=== PATIENT | female | born 1980 | race American Indian/Alaskan Native ===

== ENCOUNTER 2020-09-16 21:11 | Emergency (ER) | payer SELFPAY ==
[2020-09-16 22:58] VITALS: BP 127/77
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
[2020-09-17 01:24] LABS: Basophils % (Auto) 0.9 % (0.0-1.8); Eosinophils # (Auto) 0.1 K/mm3 (0.0-0.4); Eosinophils % (Auto) 1.5 % (0.0-4.3); Hematocrit 34.8 % (30.3-42.9); Hemoglobin 11.6 gm/dl (10.1-14.3); Lymphocytes # (Auto) 1.9 K/mm3 (1.2-5.4); Lymphocytes % (Auto) 52.8 % (13.4-35.0); Mean Corpuscular HGB Conc 33 % (30-34); Mean Corpuscular Volume 91 fl (79-97); Monocytes # (Auto) 0.3 K/mm3 (0.0-0.8); Monocytes % (Auto) 8.1 % (0.0-7.3); Platelet Count 380 K/mm3 (140-440); Red Blood Count 3.83 M/mm3 (3.65-5.03); Red Cell Distribution Width 15.8 % (13.2-15.2)
[2020-09-17 01:43] LABS: Alanine Aminotransferase 90 units/L (7-56); Albumin 4.8 g/dL (3.9-5); Blood Urea Nitrogen 3 mg/dL (7-17); Calcium 9.1 mg/dL (8.4-10.2); Hemolysis Index 0
[2020-09-17 01:47] LABS: BUN/Creatinine Ratio 5
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
== END 2020-09-17 02:50 | disposition home or self-care (01) ==
LOC: ED 21:11
DX: S20.219A Contusion of unspecified front wall of thorax, initial encounter (principal); S20.319A Abrasion of unspecified front wall of thorax, initial encounter; I10 Essential (primary) hypertension; Z98.890 Other specified postprocedural states; Z88.6 Allergy status to analgesic agent; V89.2XXA Person injured in unspecified motor-vehicle accident, traffic, initial encounter; Y93.89 Activity, other specified; Y92.89 Other specified places as the place of occurrence of the external cause; Y99.8 Other external cause status
CPT/HCPCS: 36415; 71260; 74177; 80053; 84703; 85025; 99284; Q9967

== ENCOUNTER 2020-09-24 06:47 | Emergency (ER) | payer SELFPAY ==
[2020-09-24 08:08] LABS: Basophils % (Auto) 0.1 % (0.0-1.8); Eosinophils % (Auto) 0.2 % (0.0-4.3); Hemoglobin 11.8 gm/dl (10.1-14.3); Lymphocytes # (Auto) 0.9 K/mm3 (1.2-5.4); Lymphocytes % (Auto) 10.1 % (13.4-35.0); Mean Corpuscular HGB Conc 34 % (30-34); Mean Corpuscular Volume 93 fl (79-97); Monocytes # (Auto) 0.6 K/mm3 (0.0-0.8); Platelet Count 343 K/mm3 (140-440); Red Blood Count 3.78 M/mm3 (3.65-5.03); Red Cell Distribution Width 15.7 % (13.2-15.2)
[2020-09-24 08:11] LABS: Alanine Aminotransferase 21 units/L (7-56); Albumin 4.1 g/dL (3.9-5); Blood Urea Nitrogen 7 mg/dL (7-17); Hemolysis Index 4
[2020-09-24 08:26] LABS: BUN/Creatinine Ratio 10
--- NOTE | 2020-09-24 08:32 | Emergency Department Report ---
ED Female HPI - General Chief complaint: Urogenital-Female Stated complaint: poss uti Time Seen by Provider: 09/24/20 08:32 Source: patient Mode of arrival: Ambulatory Limitations: No Limitations - History of Present Illness Initial comments: 40-year-old -[place] female presents to the emergency room stating she is concerned that she may have a urinary tract infection as she has had 2 days of dysuria urinary frequency urgency nausea vomiting and diarrhea. Patient states she last vomited was yesterday denies any nausea today. Denies any fever chills. States her last menstrual period was 09/13/2020. Currently has an allergy to aspirin does not take any medications on a daily basis. MD Complaint: dysuria, pelvic pain Onset/Timin -: days(s) Location: suprapubic Severity scale (0 -10): 8 Quality: aching, other (Pressure) Consistency: constant Improves with: none Worsens with: urination Are you Now?: No Last Menstrual Period: 09/13/20 EDC: 06/20/21 Associated Symptoms: nausea/vomiting, dysuria. denies: vaginal discharge, vaginal bleeding, headaches, hematuria - Related Data Sexually active: Yes Home Medications Medication Instructions Recorded Confirmed Last Taken NIFEdipine*For Tocolysis only* 30 mg PO DAILY 01/12/13 01/12/13 01/12/13 09:10 [Procardia] 30 MG Previous Rx's Medication Instructions Recorded Last Taken Type Ferrous Sulfate [Feosol 325 MG tab] 325 mg PO BID #60 tablet 11/22/12 01/11/13 Rx 325 MG Ibuprofen [Motrin] 600 mg PO Q6H PRN #30 tablet 11/22/12 12/22/12 Rx 600 MG Vits96/Iron Fum/Folic 1 each PO QDAY #30 11/22/12 01/11/13 Rx [ Tablet] 1 EACH HYDROcodone/APAP 5-325 [[place] 1 each PO Q6HR PRN #30 tablet 01/12/13 Unknown Rx 5/325 mg] Acetaminophen/Codeine [Tylenol #3] 1 tab PO Q6H PRN #10 tab 02/18/15 Unknown Rx Ondansetron [Zofran Odt] 4 mg PO Q8HR PRN #15 tab.rapdis 02/18/15 Unknown Rx Naproxen 500 mg PO BID #20 tablet 09/17/20 Unknown Rx Nitrofurantoin [place]/M-Cryst 100 mg PO Q12HR 10 Days #20 capsule 09/24/20 Unknown Rx [Macrobid CAP] Allergies Allergy/AdvReac Type Severity Reaction Status Date / Time aspirin Allergy Unknown Unknown Verified 11/20/12 08:52 ED Review of Systems ROS: Stated complaint: poss uti Other details as noted in HPI Comment: All other systems reviewed and negative ED Past Medical Hx - Past Medical History Previous Medical History?: Yes Hx Hypertension: Yes (12/2012) Hx Congestive Heart Failure: No Hx Diabetes: No Hx Deep Vein Thrombosis: No Hx Renal Disease: No Hx Sickle Cell Disease: No Hx Seizures: No Hx Asthma: No Hx COPD: No Hx HIV: No - Surgical History Past Surgical History?: Yes Hx Open Heart Surgery: Yes (@ young age. "Born with hole in heart") - Social History Smoking Status: Current Every Day Smoker Substance Use Type: Alcohol - Medications Home Medications: Home Medications Medication Instructions Recorded Confirmed Last Taken Type Ferrous Sulfate [Feosol 325 MG tab] 325 mg PO BID #60 tablet 11/22/12 01/11/13 Rx 325 MG Ibuprofen [Motrin] 600 mg PO Q6H PRN #30 tablet 11/22/12 12/22/12 Rx 600 MG Vits96/Iron Fum/Folic 1 each PO QDAY #30 11/22/12 11/20/12 01/11/13 Rx [ Tablet] 1 EACH HYDROcodone/APAP 5-325 [[place] 1 each PO Q6HR PRN #30 tablet 01/12/13 Unknown Rx 5/325 mg] NIFEdipine*For Tocolysis only* 30 mg PO DAILY 01/12/13 01/12/13 01/12/13 09:10 History [Procardia] 30 MG Acetaminophen/Codeine [Tylenol #3] 1 tab PO Q6H PRN #10 tab 02/18/15 Unknown Rx Ondansetron [Zofran Odt] 4 mg PO Q8HR PRN #15 tab.rapdis 02/18/15 Unknown Rx Naproxen 500 mg PO BID #20 tablet 09/17/20 Unknown Rx Nitrofurantoin [place]/M-Cryst 100 mg PO Q12HR 10 Days #20 capsule 09/24/20 Unknown Rx [Macrobid CAP] ED Physical Exam - General Limitations: No Limitations General appearance: alert, in no apparent distress - Head Head exam: Present: atraumatic, normocephalic - Eye Eye exam: Present: normal appearance - ENT ENT exam: Present: normal external ear exam - Neck Neck exam: Present: normal inspection, full ROM - Respiratory Respiratory exam: Present: normal lung sounds bilaterally. Absent: respiratory distress, accessory muscle use - Cardiovascular Cardiovascular Exam: Present: regular rate - GI/Abdominal GI/Abdominal exam: Present: soft, tenderness. Absent: distended - Extremities Exam Extremities exam: Present: normal inspection - Back Exam Back exam: Present: normal inspection - Neurological Exam Neurological exam: Present: alert, oriented X3, normal gait - Psychiatric Psychiatric exam: Present: normal affect, normal mood - Skin Skin exam: Present: warm, dry, intact, normal color. Absent: rash ED Course Vital Signs 09/24/20 07:01 Temperature 98.9 F Pulse Rate 116 H Respiratory 20 Rate Blood Pressure 107/83 O2 Sat by Pulse 100 Oximetry ED Medical Decision Making - Lab Data Result diagrams: 09/24/20 07:25 09/24/20 07:25 Laboratory Tests 09/24/20 09/24/20 09/24/20 07:25 07:25 07:33 WBC 9.3 RBC 3.78 Hgb 11.8 Hct 35.0 MCV 93 MCH 31 MCHC 34 RDW 15.7 H Plt Count 343 Lymph % (Auto) 10.1 L [place] % (Auto) 6.0 Eos % (Auto) 0.2 Baso % (Auto) 0.1 Lymph # (Auto) 0.9 L [place] # (Auto) 0.6 Eos # (Auto) 0.0 Baso # (Auto) 0.0 Seg Neutrophils % 83.6 H Seg Neutrophils # 7.8 H Sodium 133 L Potassium 3.3 L Chloride 96.8 L Carbon Dioxide 23 Anion Gap 17 BUN 7 Creatinine 0.7 Estimated GFR > 60 BUN/Creatinine Ratio 10 Glucose 105 H Calcium 9.0 Total Bilirubin 0.40 AST 19 ALT 21 Alkaline Phosphatase 88 Total Protein 8.3 H Albumin 4.1 Albumin/Globulin Ratio 1.0 Urine Color [place] Urine Turbidity Cloudy Urine pH 5.0 Ur Specific [place] 1.016 Urine Protein 100 mg/dl Urine Glucose (UA) Neg Urine Ketones Neg Urine Blood Mod Urine Nitrite Pos Urine Bilirubin Neg Urine Urobilinogen 4.0 Ur Leukocyte Esterase Sm Urine WBC (Auto) > 182.0 H Urine RBC (Auto) 79.0 U Epithel Cells (Auto) 28.0 H Urine Bacteria (Auto) 2+ Ur Transition Epith Cell 2 Urine Mucus 1+ - Medical Decision Making 40-year-old -[place] female presents to the emergency room stating she is concerned that she may have a urinary tract infection as she has had 2 days of dysuria urinary frequency urgency nausea vomiting and diarrhea. Patient states she last vomited was yesterday denies any nausea today. Denies any fever chills. States her last menstrual period was 09/13/2020. Currently has an allergy to aspirin does not take any medications on a daily basis. Urinalysis is positive for urinary tract infection with positive nitrates WBCs greater than 182 protein. CBC within normal limits CMP mild acidosis with hypokalemia encourage patient to increase her potassium intake with foods. Recommend to follow-up with [facility]. Critical care attestation.: If time is entered above; I have spent that time in minutes in the direct care of this critically ill patient, excluding procedure time. ED Disposition Clinical Impression: UTI (urinary tract infection), Hypokalemia due to excessive gastrointestinal loss of potassium Disposition: DC-01 TO HOME OR SELFCARE Is pt being admited?: No Does the pt Need Aspirin: No Condition: Stable Instructions: Urinary Tract Infection, Adult, [id number] Additional Instructions: Complete antibiotics as prescribed. Increase your fluid intake. Your potassium was a little low I like for you to eat potassium rich foods such as bananas papaya Prescriptions: Nitrofurantoin [place]/M-Cryst [Macrobid CAP] 100 mg PO Q12HR 10 Days #20 capsule Referrals: PRIMARY CAREMD [Primary Care Provider] - 3-5 Days [facility] [Provider Group] - 3-5 Days [facility] [Provider Group] - 3-5 Days Forms: Work/School Release Form(ED)
[2020-09-24 09:12] LABS: Bacteria,Urine 2+ /HPF (Negative); Bilirubin,Urine NEG (Negative); Blood,Urine MOD (Negative); Color,Urine Amber (Yellow); Mucus,Urine 1+ /HPF
[2020-09-24 09:21] LABS: WBC,Urine > 182.0 /HPF (0.0-6.0)
[2020-09-24] MEDS ORDERED: SODIUM CHLORIDE 0.9% 1000 ML 1,000 ML IV ONE (10:02)
[2020-09-24 10:13] VITALS: BP 108/84
== END 2020-09-24 10:16 | disposition home or self-care (01) ==
LOC: ED 06:47
DX: N39.0 Urinary tract infection, site not specified (principal); E87.6 Hypokalemia; I10 Essential (primary) hypertension; F17.200 Nicotine dependence, unspecified, uncomplicated; Z79.899 Other long term (current) drug therapy; Z98.890 Other specified postprocedural states; Z88.6 Allergy status to analgesic agent
CPT/HCPCS: 36415; 80053; 81001; 85025